=== PATIENT | male | born 1950 | race Caucasian/White ===

== ENCOUNTER 2018-06-14 02:04 | Emergency (ER) | payer OTHER ==
[~2018-06-14] VITALS: Ht 182.9 cm; Wt 83.9 kg
[2018-06-14 03:21] VITALS: BP 154/84
[2018-06-14] MEDS ORDERED: LIDO:MAALOX 1:1 20 ML SINGLE DOSE. SWSW ONE (03:30)
--- NOTE | 2018-06-14 03:40 | PHYS DOC ---
Past Medical History Past Medical History: No Pertinent History Past Surgical History: No Surgical History Alcohol Use: Occasionally Drug Use: None Adult General Chief Complaint Chief Complaint: GI PROBLEM HPI HPI Patient is a 67-year-old male who presents with complaint of feeling like he got something stuck in his throat after eating some hors d'oeuvres at a alliance party on Thursday night. Patient states that he has been able to swallow food and fluids but every time he swallows, it feels like something is stuck. He states that he started to chew on the order of in question and before he could spit it out, he had already swallowed part of it. He wonders if maybe there was a toothpick or something else that may have been in the hors d'oeuvre that has gotten stuck in his throat. He denies any chest pain or shortness of breath. Review of Systems Review of Systems Constitutional: Denies fever or chills [] Eyes: Denies change in visual acuity, redness, or eye pain [] HENT: Positive globus sensation[] Respiratory: Denies cough or shortness of breath [] Cardiovascular: No additional information not addressed in HPI [] GI: Denies abdominal pain, nausea, vomiting or diarrhea [] All other systems were reviewed and found to be within normal limits, except as documented in this note. Current Medications Current Medications Current Medications Medications (Trade) Dose Ordered Sig/Sebas Start Time Stop Time Status Last Admin Dose Admin Multi-Ingredient Mouthwash/Gargle (Gi Cocktail) 20 ml 1X ONCE 06/14/18 03:30 06/14/18 03:36 DC 06/14/18 03:34 20 ML Allergies Allergies Allergies Coded Allergies Type Severity Reaction Last Updated Verified No Known Drug Allergies 06/14/18 No Physical Exam Physical Exam Constitutional: Well developed, well nourished, no acute distress, non-toxic appearance. [] HENT: Normocephalic, atraumatic, bilateral external ears normal, oropharynx moist, no oral exudates, nose normal. [] Eyes: PERRLA, EOMI, conjunctiva normal, no discharge. [] Neck: Normal range of motion, no tenderness, supple, no stridor. [] Cardiovascular:Heart rate regular rhythm [] Lungs & Thorax: Bilateral breath sounds clear to auscultation [] Abdomen: Bowel sounds normal, soft. [] Skin: Warm, dry, no erythema, no rash. [] Extremities: No tenderness, no cyanosis, no clubbing, ROM intact, no edema. [] Neurologic: Alert and oriented X 3, normal motor function, normal sensory function, no focal deficits noted. [] Current Patient Data Vital Signs Vital Signs Date Time Temp Pulse Resp B/P (MAP) Pulse Ox O2 Delivery O2 Flow Rate FiO2 06/14/18 03:21 97.5 62 20 154/84 (107) 100 Room Air 97.5 EKG EKG [] Radiology/Procedures Radiology/Procedures [] Impressions: CT of chest and CT of soft tissue neck demonstrate no esophageal foreign bodies. Course & Med Decision Making Course & Med Decision Making Pertinent Labs and Imaging studies reviewed. (See chart for details) [] Dragon Disclaimer Dragon Disclaimer This electronic medical record was generated, in whole or in part, using a voice recognition dictation system. Departure Departure Impression: Primary Impression: Dysphagia Additional Impression: Globus pharyngeus Disposition: HOME, SELF-CARE Condition: STABLE Referrals: LILY WOODARD (PCP) Patient Instructions: Dysphagia, Globus Syndrome Problem Qualifiers Primary Impression: Dysphagia Dysphagia type: unspecified Qualified Codes: R13.10 - Dysphagia, unspecified ABBY KIMBLE Jr. DO Jun 14, 2018 03:40
--- NOTE | 2018-06-14 04:33 | RAD ---
CT neck without contrast History: Sore throat stiff neck difficulty swallowing Axial helical images of the neck were obtained without IV contrast. Axial coronal and sagittal reconstruction was performed for a CT soft tissues neck with contrast. Findings: The fat soft tissue planes of the neck are preserved. There is no mass or lymphadenopathy. There is no prevertebral soft tissue swelling. The thyroid appears normal. There is marked degenerative changes with multilevel central and neuroforaminal stenosis. Impression: No acute findings. End impression CT of the chest without contrast: Clinical History: Pain. Axial helical images of the chest were obtained without contrast. The lungs and pleural margins are clear. There is no mediastinal or hilar lymphadenopathy. The ascending thoracic aorta is mildly dilated to 3.5 cm. There is mild coronary artery calcifications. Impression: 1. Mildly dilated ascending thoracic aorta. 2. No acute findings. PQRS Compliance Statement: One or more of the following individualized dose reduction techniques were utilized for this examination: 1. Automated exposure control 2. Adjustment of the mA and/or kV according to patient size 3. Use of iterative reconstruction technique Electronically signed by: Carlos Olson III, MD (06/14/2018 4:31 AM) [facility]
== END 2018-06-14 05:19 | disposition home or self-care (01) ==
LOC: ER 02:04
DX: R13.10 Dysphagia, unspecified (principal); F45.8 Other somatoform disorders
CPT/HCPCS: 70490; 71250; 99284-25

== ENCOUNTER 2019-01-03 19:24 | Inpatient (IN) | payer OTHER ==
[~2019-01-03] VITALS: Ht 180.3 cm; Wt 85.9 kg
[2019-01-03] MEDS ORDERED: IV NORMAL SALINE 1000ML BAG 1,000 ML IV SCH (19:47)
[2019-01-03] MEDS ORDERED: dilTIAZem IV PUSH 25 MG/5 ML VIAL IVP ONE (20:00)
--- NOTE | 2019-01-03 20:03 | PHYS DOC ---
Past Medical History Past Medical History: No Pertinent History Past Surgical History: No Surgical History Additional Information: non smoker Alcohol Use: Occasionally Drug Use: None Adult General Chief Complaint Chief Complaint: Palpitations HPI HPI Patient is a 68 year old male who presents with shortness of breath, fatigue, jaw pain, dizziness. Symptoms have been ongoing since this morning. Is in a-fib on the monitor in the room with a rate of 150. Has had a hx of a-fib. Last event was 3 years ago. Has had 4 total events. The first in 2004. Reports no pain and no interventions prior to arrival. The patient does not take any daily medications with the exception of pepcid and is not anticoagulated. Review of Systems Review of Systems Constitutional: Denies fever or chills, reports fatigue Eyes: Denies change in visual acuity, redness, or eye pain [] HENT: Denies nasal congestion or sore throat [] Respiratory: Denies cough but reports shortness of breath [] Cardiovascular: Reports Jaw pain and dizziness. GI: Denies abdominal pain, nausea, vomiting, bloody stools or diarrhea [] : Denies dysuria or hematuria [] Musculoskeletal: Denies back pain or joint pain [] Integument: Denies rash or skin lesions [] Neurologic: Denies headache, focal weakness or sensory changes [] Endocrine: Denies polyuria or polydipsia [] Complete systems were reviewed and found to be within normal limits, except as documented in this note. Current Medications Current Medications Current Medications Medications (Trade) Dose Ordered Sig/Sebas Start Time Stop Time Status Last Admin Dose Admin Diltiazem HCl (Cardizem Iv Push) 20 mg 1X ONCE 01/03/19 20:00 01/03/19 20:01 DC 01/03/19 20:08 20 MG Diltiazem HCl 125 mg/Dextrose 125 ml @ 5 mls/hr STAT STAT 01/03/19 20:45 01/04/19 21:44 Enoxaparin Sodium (Lovenox 80mg Syringe) 80 mg 1X ONCE 01/03/19 20:00 01/03/19 20:01 DC 01/03/19 20:04 80 MG Sodium Chloride 1,000 ml @ 1,000 mls/hr Q1H 01/03/19 19:47 01/03/19 20:46 DC 01/03/19 20:03 1,000 MLS/HR Allergies Allergies Allergies Coded Allergies Type Severity Reaction Last Updated Verified No Known Drug Allergies 06/14/18 No Physical Exam Physical Exam Constitutional: Well developed, well nourished, no acute distress, non-toxic appearance. [] HENT: Normocephalic, atraumatic, bilateral external ears normal, oropharynx moist, no oral exudates, nose normal. [] Eyes: PERRLA, EOMI, conjunctiva normal, no discharge. [] Neck: Normal range of motion, no tenderness, supple, no stridor. [] Cardiovascular:Heart rate irregular rhythm, no murmur [] Lungs & Thorax: Bilateral breath sounds clear to auscultation [] Abdomen: Bowel sounds normal, soft, no tenderness, no masses, no pulsatile masses. [] Skin: Warm, dry, no erythema, no rash. [] Back: No tenderness, no CVA tenderness. [] Extremities: No tenderness, no cyanosis, no clubbing, ROM intact, no edema. [] Neurologic: Alert and oriented X 3, normal motor function, normal sensory function, no focal deficits noted. [] Psychologic: Affect normal, judgement normal, mood normal. [] Current Patient Data Vital Signs Vital Signs Date Time Temp Pulse Resp B/P (MAP) Pulse Ox O2 Delivery O2 Flow Rate FiO2 01/03/19 20:08 124 126/80 01/03/19 19:46 97.8 99 Room Air 97.8 Lab Values Laboratory Tests Test 01/03/19 19:35 White Blood Count 5.4 x10^3/uL (4.0-11.0) Red Blood Count 5.03 x10^6/uL (4.30-5.70) Hemoglobin 15.3 g/dL (13.0-17.5) Hematocrit 45.4 % (39.0-53.0) Mean Corpuscular Volume 90 fL (79-100) Mean Corpuscular Hemoglobin 31 pg (25-35) Mean Corpuscular Hemoglobin Concent 34 g/dL (31-37) Red Cell Distribution Width 13.1 % (11.5-14.5) Platelet Count 155 x10^3/uL (140-400) Neutrophils (%) (Auto) 56 % (31-73) Lymphocytes (%) (Auto) 29 % (24-48) Monocytes (%) (Auto) 7 % (0-9) Eosinophils (%) (Auto) 8 % (0-3) H Basophils (%) (Auto) 1 % (0-3) Neutrophils # (Auto) 3.0 x10^3uL (1.8-7.7) Lymphocytes # (Auto) 1.5 x10^3/uL (1.0-4.8) Monocytes # (Auto) 0.4 x10^3/uL (0.0-1.1) Eosinophils # (Auto) 0.4 x10^3/uL (0.0-0.7) Basophils # (Auto) 0.0 x10^3/uL (0.0-0.2) Prothrombin Time 11.9 SEC (11.7-14.0) Prothrombin Time INR 0.9 (0.8-1.1) Sodium Level 142 mmol/L (136-145) Potassium Level 3.5 mmol/L (3.5-5.1) Chloride Level 102 mmol/L (98-107) Carbon Dioxide Level 31 mmol/L (21-32) Anion Gap 9 (6-14) Blood Urea Nitrogen 13 mg/dL (8-26) Creatinine 1.1 mg/dL (0.7-1.3) Estimated GFR (Cockcroft-Gault) 66.4 BUN/Creatinine Ratio 12 (6-20) Glucose Level 129 mg/dL (70-99) H Calcium Level 9.0 mg/dL (8.5-10.1) Total Bilirubin 0.3 mg/dL (0.2-1.0) Aspartate Amino Transferase (AST) 34 U/L (15-37) Alanine Aminotransferase (ALT) 29 U/L (16-63) Alkaline Phosphatase 75 U/L (46-116) Troponin I Quantitative < 0.017 ng/mL (0.000-0.055) Total Protein 6.8 g/dL (6.4-8.2) Albumin 3.9 g/dL (3.4-5.0) Albumin/Globulin Ratio 1.3 (1.0-1.7) Laboratory Tests 01/03/19 19:35 Laboratory Tests 01/03/19 19:35 EKG EKG Interpreted by Dr. Enmanuel Rios with rate of 120. No STEMI.[] Interpreted by Dr. Singer A-fib with rate of 107. No STEMI. Radiology/Procedures Radiology/Procedures PRE-BARFIELD READING OF CHEST X-RAY NO ACUTE ABNORMALITIES[] Course & Med Decision Making Course & Med Decision Making Pertinent Labs and Imaging studies reviewed. (See chart for details) Will order labs, chest x-ray, Lovenox, Cardizem IV push, and EKG. Patient is agreeable. After Cardizem IV push rate is better controlled down to 90-110. Will order a Cardizem drip to get in better control. Will call hospitalist for admission. Talked to Dr. Grijalva who will admit to [facility]. Dragon Disclaimer Dragon Disclaimer This electronic medical record was generated, in whole or in part, using a voice recognition dictation system. Departure Departure Impression: Primary Impression: Atrial fibrillation Disposition: ADMITTED INPATIENT Admitting Physician: Other Referrals: LILY WOODARD (PCP) Problem Qualifiers Primary Impression: Atrial fibrillation Atrial fibrillation type: persistent Qualified Codes: I48.1 - Persistent atrial fibrillation LIZET ARCHER APRN January 03, 2019 20:03
[2019-01-03 20:12] LABS: BASO % 1 % (0-3); EOS # 0.4 x10^3/uL (0.0-0.7); EOS % 8 % (0-3); HEMATOCRIT 45.4 % (39.0-53.0); HEMOGLOBIN 15.3 g/dL (13.0-17.5); LYMPH # 1.5 x10^3/uL (1.0-4.8); LYMPH % 29 % (24-48); MEAN CORPUSCULAR HEMOGLOBIN 31 pg (25-35); MEAN CORPUSCULAR HGB CONC 34 g/dL (31-37); MEAN CORPUSCULAR VOLUME 90 fL (79-100); MONO # 0.4 x10^3/uL (0.0-1.1); MONO % 7 % (0-9); NEUT % 56 % (31-73); PLATELET COUNT 155 x10^3/uL (140-400); RED BLOOD COUNT 5.03 x10^6/uL (4.30-5.70); RED CELL DISTRIBUTION WIDTH 13.1 % (11.5-14.5); WHITE BLOOD COUNT 5.4 x10^3/uL (4.0-11.0)
[2019-01-03 20:23] LABS: PROTHROMBIN TIME PATIENT 11.9 SEC (11.7-14.0)
[2019-01-03 20:25] LABS: CREATININE 1.1 mg/dL (0.7-1.3); GFR 66.4; POTASSIUM 3.5 mmol/L (3.5-5.1)
[2019-01-03 20:29] LABS: ALBUMIN 3.9 g/dL (3.4-5.0); ALBUMIN/GLOBULIN RATIO 1.3 (1.0-1.7); TOTAL BILIRUBIN 0.3 mg/dL (0.2-1.0); TOTAL PROTEIN 6.8 g/dL (6.4-8.2)
[2019-01-03] MEDS ORDERED: dilTIAZem INJ 125 MG in IV DEXTROSE 5% 100ML 100 ML IV STA (20:45)
[2019-01-03] MEDS ORDERED: ONDANSETRON PF 4 MG/2 ML VIAL. IV PRN (21:00)
[2019-01-03] MEDS ORDERED: fentaNYL PF VIAL 100 MCG/2 ML VIAL IV PRN (21:00)
--- NOTE | 2019-01-03 21:30 | NUR ---
Admit from ER w/ Afib, dizziness, and palpitations. Drove self to ER. Diagnosed w/ Afib in 2004, one cardioversion done, not on anti-coagulant. Does not see a nut sheller. Chronic hx of dysphagia also, cause unknown. 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 In NAD, pulse irregular in the 50s.
[2019-01-03 21:40] VITALS: BP 112/77
[2019-01-03 23:05] VITALS: BP 100/64
[2019-01-04 03:05] VITALS: BP 102/64
[2019-01-04 07:00] VITALS: BP 108/69
--- NOTE | 2019-01-04 09:23 | PDOC1 ---
History and Physical Date of Admission Date of Admission DATE: 01/04/19 TIME: 09:23 Identification/Chief Complaint Chief Complaint seen in ER, 68 year old male who presents with shortness of breath, fatigue, jaw pain, dizziness. WAS in a-fib on the monitor in the room with a rate of 150. Has had a hx of a-fib. Last event was 3 years ago. Has had 4 total events. The first in 2004. Reports no pain and no interventions prior to arrival. reports normal cardiac cath [address] MARISA CHAVEZ [facility] Past Medical History Past Medical History Past Medical History Past Medical History Past Medical History: No Pertinent History Past Surgical History: No Surgical History Additional Information: non smoker Alcohol Use: Occasionally Drug Use: None FAMILY HX CAD Cardiovascular: AFIB Rheumatologic: No pertinent hx Family History Family History: Coronary Artery Disease, High Cholestrol, Hypertension Family History: Parent Social History Smoke: No ALCOHOL: social Drugs: None, Other (RETIRED [employer]) Current Problem List Problem List Problems Medical Problems: (1) Atrial fibrillation Status: Acute Current Medications Current Medications Current Medications Sodium Chloride 1,000 ml @ 1,000 mls/hr Q1H IV Last administered on 01/03/19at 20:03; Start 01/03/19 at 19:47; Stop 01/03/19 at 20:46; Status DC Enoxaparin Sodium (Lovenox 80mg Syringe) 80 mg 1X ONCE SQ Last administered on 01/03/19at 20:04; Start 01/03/19 at 20:00; Stop 01/03/19 at 20:01; Status DC Diltiazem HCl (Cardizem Iv Push) 20 mg 1X ONCE IVP Last administered on 01/03/19at 20:08; Start 01/03/19 at 20:00; Stop 01/03/19 at 20:01; Status DC Diltiazem HCl 125 mg/Dextrose 125 ml @ 5 mls/hr STAT STAT IV Last administered on 01/03/19at 21:09; Start 01/03/19 at 20:45; Stop 01/04/19 at 21:44 Ondansetron HCl (Zofran) 4 mg PRN Q8HRS PRN IV NAUSEA/VOMITING; Start 01/03/19 at 21:00; Stop 01/04/19 at 20:59 Fentanyl Citrate (Fentanyl 2ml Vial) 50 mcg PRN Q1HR PRN IV PAIN; Start 01/03/19 at 21:00; Stop 01/04/19 at 20:59 Allergies Allergies: Coded Allergies: No Known Drug Allergies (Unverified , 06/14/18) ROS Review of System Review of Systems Review of Systems Constitutional: Denies fever or chills, reports fatigue Eyes: Denies change in visual acuity, redness, or eye pain [] HENT: Denies nasal congestion or sore throat [] Respiratory: Denies cough but reports shortness of breath in er [] Cardiovascular: Reports Jaw pain and dizziness.resolved GI: Denies abdominal pain, nausea, vomiting, bloody stools or diarrhea [] : Denies dysuria or hematuria [] Musculoskeletal: Denies back pain or joint pain [] Integument: Denies rash or skin lesions [] Neurologic: Denies headache, focal weakness or sensory changes [] Endocrine: Denies polyuria or polydipsia [] 14 pt systems were reviewed and found to be within normal limits, except as documented General: No: Chills, Night Sweats, Fatigue, Malaise, Appetite, Other Hematological and Lymphatic: No: Bleeding Problems, Blood Clots, Blood Transfusions, Brusing, Night Sweats, Pallor, Swollen Lymph Nodes, Other Respiratory: No: Cough, Hemoptysis, Orthopnea, Pleuritic Pain, Shortness of breath, SOB with excertion, Sputum Changes, Stridor, Tachypnea, Wheezing, Other Cardiovascular: yes Palpitations Gastrointestinal: No Nausea, No Vomiting, No Abdominal Pain, No Diarrhea, No Constipation, No Melena, No Hematochezia, No Other Neurological: No Behavorial Changes, No Bowel/Bladder ControlChng, No Confusion, No Dizziness, No Gait Disturbance, No Headaches, No Impaired Coord/balance, No Memory Loss, No Numbness/Tingling, No Seizures, No Speech Problems, No Tremors, No Visual Changes, No Weakness, No Other Skin: No Dry Skin, No Eczema, No Hair Changes, No Lumps, No Mole Changes, No Mottling, No Nail Changes, No Pruritus, No Rash, No Skin Lesion Changes, No Other, No Acne Physical Exam Physical Exam Physical Exam Physical Exam Constitutional: Well developed, well nourished, no acute distress, non-toxic appearance. [] HENT: Normocephalic, atraumatic, bilateral external ears normal, oropharynx moist, no oral exudates, nose normal. [] Eyes: PERRLA, EOMI, conjunctiva normal, no discharge. [] Neck: Normal range of motion, no tenderness, supple, no stridor. [] Cardiovascular:Heart rate irregular rhythm, no murmur [] Lungs & Thorax: Bilateral breath sounds clear to auscultation [] Abdomen: Bowel sounds normal, soft, no tenderness, no masses, no pulsatile masses. [] Skin: Warm, dry, no erythema, no rash. [] Back: No tenderness, no CVA tenderness. [] Extremities: No tenderness, no cyanosis, no clubbing, ROM intact, no edema. [] Neurologic: Alert and oriented X 3, normal motor function, normal sensory function, no focal deficits noted. [] Psychologic: Affect normal, judgement normal, mood normal. [] General: Alert, Oriented X3, Cooperative, No acute distress HEENT: Atraumatic, EOMI, Mucous membr. moist/pink Lungs: Clear to auscultation Heart: RRR Breasts: Not examined Abdomen: Normal bowel sounds, Soft Rectal Exam: not examined Extremities: No cyanosis Skin: No significant lesion Neuro: Normal speech, Cranial nerves 3-12 NL Psych/Mental Status: Mental status NL Vitals Vitals Vital Signs Date Time Temp Pulse Resp B/P (MAP) Pulse Ox O2 Delivery O2 Flow Rate FiO2 01/04/19 07:15 Room Air 01/04/19 07:00 97.9 50 18 108/69 (82) 98 97.9 Labs Labs Laboratory Tests Test 01/03/19 19:35 White Blood Count 5.4 x10^3/uL (4.0-11.0) Red Blood Count 5.03 x10^6/uL (4.30-5.70) Hemoglobin 15.3 g/dL (13.0-17.5) Hematocrit 45.4 % (39.0-53.0) Mean Corpuscular Volume 90 fL (79-100) Mean Corpuscular Hemoglobin 31 pg (25-35) Mean Corpuscular Hemoglobin Concent 34 g/dL (31-37) Red Cell Distribution Width 13.1 % (11.5-14.5) Platelet Count 155 x10^3/uL (140-400) Neutrophils (%) (Auto) 56 % (31-73) Lymphocytes (%) (Auto) 29 % (24-48) Monocytes (%) (Auto) 7 % (0-9) Eosinophils (%) (Auto) 8 % (0-3) Basophils (%) (Auto) 1 % (0-3) Neutrophils # (Auto) 3.0 x10^3uL (1.8-7.7) Lymphocytes # (Auto) 1.5 x10^3/uL (1.0-4.8) Monocytes # (Auto) 0.4 x10^3/uL (0.0-1.1) Eosinophils # (Auto) 0.4 x10^3/uL (0.0-0.7) Basophils # (Auto) 0.0 x10^3/uL (0.0-0.2) Prothrombin Time 11.9 SEC (11.7-14.0) Prothromb Time International Ratio 0.9 (0.8-1.1) Sodium Level 142 mmol/L (136-145) Potassium Level 3.5 mmol/L (3.5-5.1) Chloride Level 102 mmol/L (98-107) Carbon Dioxide Level 31 mmol/L (21-32) Anion Gap 9 (6-14) Blood Urea Nitrogen 13 mg/dL (8-26) Creatinine 1.1 mg/dL (0.7-1.3) Estimated GFR (Cockcroft-Gault) 66.4 BUN/Creatinine Ratio 12 (6-20) Glucose Level 129 mg/dL (70-99) Calcium Level 9.0 mg/dL (8.5-10.1) Total Bilirubin 0.3 mg/dL (0.2-1.0) Aspartate Amino Transf (AST/SGOT) 34 U/L (15-37) Alanine Aminotransferase (ALT/SGPT) 29 U/L (16-63) Alkaline Phosphatase 75 U/L (46-116) Troponin I Quantitative < 0.017 ng/mL (0.000-0.055) Total Protein 6.8 g/dL (6.4-8.2) Albumin 3.9 g/dL (3.4-5.0) Albumin/Globulin Ratio 1.3 (1.0-1.7) Laboratory Tests Test 01/03/19 19:35 White Blood Count 5.4 x10^3/uL (4.0-11.0) Red Blood Count 5.03 x10^6/uL (4.30-5.70) Hemoglobin 15.3 g/dL (13.0-17.5) Hematocrit 45.4 % (39.0-53.0) Mean Corpuscular Volume 90 fL (79-100) Mean Corpuscular Hemoglobin 31 pg (25-35) Mean Corpuscular Hemoglobin Concent 34 g/dL (31-37) Red Cell Distribution Width 13.1 % (11.5-14.5) Platelet Count 155 x10^3/uL (140-400) Neutrophils (%) (Auto) 56 % (31-73) Lymphocytes (%) (Auto) 29 % (24-48) Monocytes (%) (Auto) 7 % (0-9) Eosinophils (%) (Auto) 8 % (0-3) Basophils (%) (Auto) 1 % (0-3) Neutrophils # (Auto) 3.0 x10^3uL (1.8-7.7) Lymphocytes # (Auto) 1.5 x10^3/uL (1.0-4.8) Monocytes # (Auto) 0.4 x10^3/uL (0.0-1.1) Eosinophils # (Auto) 0.4 x10^3/uL (0.0-0.7) Basophils # (Auto) 0.0 x10^3/uL (0.0-0.2) Prothrombin Time 11.9 SEC (11.7-14.0) Prothromb Time International Ratio 0.9 (0.8-1.1) Sodium Level 142 mmol/L (136-145) Potassium Level 3.5 mmol/L (3.5-5.1) Chloride Level 102 mmol/L (98-107) Carbon Dioxide Level 31 mmol/L (21-32) Anion Gap 9 (6-14) Blood Urea Nitrogen 13 mg/dL (8-26) Creatinine 1.1 mg/dL (0.7-1.3) Estimated GFR (Cockcroft-Gault) 66.4 BUN/Creatinine Ratio 12 (6-20) Glucose Level 129 mg/dL (70-99) Calcium Level 9.0 mg/dL (8.5-10.1) Total Bilirubin 0.3 mg/dL (0.2-1.0) Aspartate Amino Transf (AST/SGOT) 34 U/L (15-37) Alanine Aminotransferase (ALT/SGPT) 29 U/L (16-63) Alkaline Phosphatase 75 U/L (46-116) Troponin I Quantitative < 0.017 ng/mL (0.000-0.055) Total Protein 6.8 g/dL (6.4-8.2) Albumin 3.9 g/dL (3.4-5.0) Albumin/Globulin Ratio 1.3 (1.0-1.7) Images Images Single view chest dated 01/03/2019. Comparison made to 06/14/2018 and 07/28/2005. CLINICAL INDICATION: Palpitations. FINDINGS: Single upright view of the chest shows stable heart and mediastinal contours. Lungs are somewhat hyperinflated but otherwise clear. No consolidation or pleural effusion. No pneumothorax. IMPRESSION: 1. No acute radiographic abnormality. 2. Hyperinflation, suggesting COPD. Electronically signed by: Lizet De Anda MD (01/03/2019 8:20 PM) [facility] DICTATED and SIGNED BY: LIZET DE ANDA MD DATE: 01/03/192019 VTE Prophylaxis Ordered VTE Prophylaxis Devices: Yes VTE Pharmacological Prophylaxi: Yes Assessment/Plan Assessment/Plan IMPRESSION AFIB RVR Hyperinflation, suggesting COPD.///ON cxr, nonsmoker HX NO CATH 2015 [facility] PLAN ADMIT CVC CARDIZEM DRIP, TITRATE D/C START TOPROL cardiology consult echo PENDING dvt prophylaxis CONSIDER STRESS TESTING HEENA VARMA MD January 04, 2019 09:23
[2019-01-04 09:39] LABS: CHOLESTEROL/HDL RATIO 2.9
[2019-01-04] MEDS ORDERED: ASPIRIN ENTERIC COATED 325 MG TABLET.DR. PO ONE (09:45)
--- NOTE | 2019-01-04 09:48 | PDOC2 ---
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 Reports that he has been feeling more tired in the last several days. 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 Yesterday he was standing in front of the sink and felt palpitations and felt weak. No nausea, or SOA. He went to ED and he was noted with AFIB RVR. He had this before first noted in 2004. He saw a warehouse supervisor 3rd shift about 2 yrs ago and was told that he does not need anymore medications but has not had any heart monitor as an outpt. He had stress test 3 yrs ago and LHC 2 yrs ago which were both unremarkable based on his description. No recent long distance travel. No prior CVA/TIA. No prior VTE, CAD and does not take any medications except for PRN antihistamine for allergies. No recent falls or injury. No syncope. PAST MEDICAL HISTORY Cardiovascular: AFIB Pulmonary: No pertinent hx CENTRAL NERVOUS SYSTEM: Other (No pertinent history) GI: Peptic Ulcer disease Heme/Onc: No pertinent hx Hepatobiliary: No pertinent hx Psych: No pertinent hx Musculoskeletal: Osteoarthritis Rheumatologic: No pertinent hx Infectious disease: No pertinent hx ENT: Allergic Rhinitis Renal/: Prostate Ca. Endocrine: No pertinent hx Dermatology: No pertinent hx PAST SURGICAL HISTORY Past Surgical History: Other (protate removal) FAMILY HISTORY Family History noncontributory to CV SOCIAL HISTORY Smoke: No ALCOHOL: none Drugs: None Lives: Alone CURRENT MEDICATIONS CURRENT MEDICATIONS Current Medications Medications (Trade) Dose Ordered Sig/Sebas Route PRN Reason Start Time Stop Time Status Last Admin Dose Admin Sodium Chloride 1,000 ml @ 1,000 mls/hr Q1H IV 01/03/19 19:47 01/03/19 20:46 DC 01/03/19 20:03 Enoxaparin Sodium (Lovenox 80mg Syringe) 80 mg 1X ONCE SQ 01/03/19 20:00 01/03/19 20:01 DC 01/03/19 20:04 Diltiazem HCl (Cardizem Iv Push) 20 mg 1X ONCE IVP 01/03/19 20:00 01/03/19 20:01 DC 01/03/19 20:08 Diltiazem HCl 125 mg/Dextrose 125 ml @ 5 mls/hr STAT STAT IV 01/03/19 20:45 01/04/19 21:44 01/03/19 21:09 ALLERGIES ALLERGIES: Coded Allergies: No Known Drug Allergies (Unverified , 06/14/18) ROS Review of System 14 point ROS evaluated with pertinent positives noted per HPI PHYSICAL EXAM General: Alert, Oriented X3, Cooperative, No acute distress HEENT: Atraumatic, Mucous membr. moist/pink Lungs: Clear to auscultation, Normal air movement Heart: Regular rate (SB), Normal S1, Normal S2, No murmurs Abdomen: Soft, No tenderness Extremities: No cyanosis, No edema Skin: No breakdown, No significant lesion Neuro: Normal speech, Sensation intact Psych/Mental Status: Mental status NL, Mood NL MUSCULOSKELETAL: Osteoarthritic changes both hands VITALS VITALS Vital Signs Date Time Temp Pulse Resp B/P (MAP) Pulse Ox O2 Delivery O2 Flow Rate FiO2 01/04/19 07:15 Room Air 01/04/19 07:00 97.9 50 18 108/69 (82) 98 97.9 LABS Lab: Laboratory Tests Test 01/03/19 19:35 White Blood Count 5.4 x10^3/uL (4.0-11.0) Red Blood Count 5.03 x10^6/uL (4.30-5.70) Hemoglobin 15.3 g/dL (13.0-17.5) Hematocrit 45.4 % (39.0-53.0) Mean Corpuscular Volume 90 fL (79-100) Mean Corpuscular Hemoglobin 31 pg (25-35) Mean Corpuscular Hemoglobin Concent 34 g/dL (31-37) Red Cell Distribution Width 13.1 % (11.5-14.5) Platelet Count 155 x10^3/uL (140-400) Neutrophils (%) (Auto) 56 % (31-73) Lymphocytes (%) (Auto) 29 % (24-48) Monocytes (%) (Auto) 7 % (0-9) Eosinophils (%) (Auto) 8 % (0-3) Basophils (%) (Auto) 1 % (0-3) Neutrophils # (Auto) 3.0 x10^3uL (1.8-7.7) Lymphocytes # (Auto) 1.5 x10^3/uL (1.0-4.8) Monocytes # (Auto) 0.4 x10^3/uL (0.0-1.1) Eosinophils # (Auto) 0.4 x10^3/uL (0.0-0.7) Basophils # (Auto) 0.0 x10^3/uL (0.0-0.2) Prothrombin Time 11.9 SEC (11.7-14.0) Prothromb Time International Ratio 0.9 (0.8-1.1) Sodium Level 142 mmol/L (136-145) Potassium Level 3.5 mmol/L (3.5-5.1) Chloride Level 102 mmol/L (98-107) Carbon Dioxide Level 31 mmol/L (21-32) Anion Gap 9 (6-14) Blood Urea Nitrogen 13 mg/dL (8-26) Creatinine 1.1 mg/dL (0.7-1.3) Estimated GFR (Cockcroft-Gault) 66.4 BUN/Creatinine Ratio 12 (6-20) Glucose Level 129 mg/dL (70-99) Calcium Level 9.0 mg/dL (8.5-10.1) Total Bilirubin 0.3 mg/dL (0.2-1.0) Aspartate Amino Transf (AST/SGOT) 34 U/L (15-37) Alanine Aminotransferase (ALT/SGPT) 29 U/L (16-63) Alkaline Phosphatase 75 U/L (46-116) Troponin I Quantitative < 0.017 ng/mL (0.000-0.055) Total Protein 6.8 g/dL (6.4-8.2) Albumin 3.9 g/dL (3.4-5.0) Albumin/Globulin Ratio 1.3 (1.0-1.7) ASSESSMENT/PLAN ASSESSMENT/PLAN AFIB RVR/Palpitations: Converted to SR/SB lowest mid40s. Cardizem 5 mg/hr drip taken off due to latter. Hx of PAFIB: no meds at home reported taken off 2 yrs ago Recommendations 1. MCOT as an outpt. 2. ECASA 325 daily for stroke prevention. [id number] 1. Place on 12.5 mg top rol XL, BP marginal, and will note response 3. Flecainide is a consideration pending TTE and AFIB burden via MCOT. 4. Discussed avoidance of phenylephrine for allergy and excessive caffeine use 5. Check TSH and lipids. ALINA SARAVIA MD 01/04/192: CARDIAC CONSULT ASSESSMENT/PLAN ASSESSMENT/PLAN Patient seen and examined. Agree with CONSTRUCTION CODE ADMINISTRATOR's assessment and plan. Patient presently back in SR and feeling better 2D echo showed normal LV function Agree with ASA for stroke prophylaxis due to low ChadsVasc score Plan outpatient event monitor to assess arrhythmia burden Thank you for your consultation HAMMAD SOLANO APRN January 04, 2019 09:48 ALINA SARAVIA MD January 04, 2019 21:02
--- NOTE | 2019-01-04 09:48 | EKG ---
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
--- NOTE | 2019-01-04 09:49 | RAD ---
Single view chest dated 01/03/2019. Comparison made to 06/14/2018 and 07/28/2005. CLINICAL INDICATION: Palpitations. FINDINGS: Single upright view of the chest shows stable heart and mediastinal contours. Lungs are somewhat hyperinflated but otherwise clear. No consolidation or pleural effusion. No pneumothorax. IMPRESSION: 1. No acute radiographic abnormality. 2. Hyperinflation, suggesting COPD. Electronically signed by: Romario De Anda MD (01/03/2019 8:20 PM) [facility]
[2019-01-04] MEDS ORDERED: METOPROLOL SUCC 24HR ER 25 MG TAB.ER.24H. PO SCH (10:00)
--- NOTE | 2019-01-04 10:40 | EKG ---
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
[2019-01-04 10:54] VITALS: BP 104/66
--- NOTE | 2019-01-04 12:09 | NUR ---
SS following for discharge planning. SS reviewed pt chart. Pt is from home with spouse and is currently on room air. No discharge needs noted at this time. SS will continue to follow for discharge planning.
--- NOTE | 2019-01-04 15:29 | CARD ---
MR#: [id number] Date of Study: 01/04/2019 Ordering Physician: HAMMAD SOLANO, Referring Physician: MICA RAMIREZ Tech: Sasha Hardy RDCS APPROVED REPORT EXAM: Two-dimensional and M-mode echocardiogram with Doppler and color Doppler. Other Information Quality : Good INDICATION Atrial Fibrillation 2D DIMENSIONS RVDd2.9 (2.9-3.5cm)Left Atrium(2D)3.9 (1.6-4.0cm) IVSd0.7 (0.7-1.1cm)Aortic Root(2D)3.5 (2.0-3.7cm) LVDd5.4 (3.9-5.9cm)LVOT Diameter2.2 (1.8-2.4cm) PWd0.7 (0.7-1.1cm)LVDs3.5 (2.5-4.0cm) FS (%) 34.3 %SV88.6 ml LVEF(%)62.8 (>50%) Aortic Valve AoV Peak Benoit.106.9cm/sAoV VTI19.2cm AO Peak GR.4.6mmHgLVOT Peak Benoit.96.4cm/s AO Mean GR.2mmHgAVA (VMAX)3.33cm2 QASIM (VTI)3.60cm2 Mitral Valve MV E Gbsyiwdf41.5cm/sMV DECEL RBJN268co MV A Ycdwjaqy29.3cm/sE/A Ratio0.9 Tricuspid Valve TR P. Wupjjojq880xw/sRAP VVGUIWYP8oaNm TR Peak Gr.97teSkNOCD53spXa Pulmonary Vein S1 Ebvkdpet45.7cm/sD2 Wqtxeudu81.1cm/s LEFT VENTRICLE The left ventricle is normal size. There is normal left ventricular wall thickness. The left ventricu lar systolic function is normal. The Ejection Fraction is 55-60%. There is normal LV segmental wall m otion. Transmitral Doppler flow pattern is Grade I-abnormal relaxation pattern. RIGHT VENTRICLE The right ventricle is normal size. The right ventricular systolic function is normal. ATRIA The left atrium size is normal. The right atrium size is normal. The interatrial septum is intact wit h no evidence for an atrial septal defect or patent foramen ovale as noted on 2-D or Doppler imaging. AORTIC VALVE The aortic valve is calcified but opens well. Doppler and Color Flow revealed no significant aortic r egurgitation. There is no significant aortic valvular stenosis. MITRAL VALVE The mitral valve is normal in structure and function. A moderate mitral valve prolapse is present. Th ere is no mitral valve stenosis. Doppler and Color-flow revealed mild mitral regurgitation. TRICUSPID VALVE The tricuspid valve is normal in structure and function. Doppler and Color Flow revealed mild tricusp id regurgitation. There is mild pulmonary hypertension. The PA pressure was estimated at 32 mmHg. The re is no tricuspid valve stenosis. PULMONIC VALVE The pulmonic valve is not well visualized. Doppler and Color Flow revealed trace to mild pulmonic dante vular regurgitation. There is no pulmonic valvular stenosis. GREAT VESSELS The aortic root is normal in size. The ascending aorta is normal in size. The IVC is normal in size a nd collapses >50% with inspiration. PERICARDIAL EFFUSION There is no evidence of significant pericardial effusion. Critical Notification Critical Value: No <Conclusion> The left ventricular systolic function is normal. The Ejection Fraction is 55-60%. There is normal LV segmental wall motion. Transmitral Doppler flow pattern is Grade I-abnormal relaxation pattern. Mild mitral regurgitation. Mild tricuspid regurgitation. There is mild pulmonary hypertension. The PA pressure was estimated at 32 mmHg. There is no evidence of significant pericardial effusion. Signed by : Ajith Greenwood, Electronically Approved : 01/04/2019 15:28:31
--- NOTE | 2019-01-04 17:09 | PDOC3 ---
Discharge Summary Date of Admission: January 03, 2019 Date of Discharge: January 04, 2019 Follow-Up: 3-5 days Admitting Diagnosis comment: DISCHARGE DX Assessment/Plan IMPRESSION AFIB RVR Hyperinflation, suggesting COPD.///ON cxr, nonsmoker HX CARDIAC CATH 2015 [facility] PLAN ADMIT CVC CARDIZEM DRIP, TITRATE D/C START TOPROL cardiology consult echo PENDING dvt prophylaxis CONSIDER STRESS TESTING OUT PT D/C PLANNING 33 MIN Chief Complaint seen in ER, 68 year old male who presents with shortness of breath, fatigue, jaw pain, dizziness. WAS in a-fib on the monitor in the room with a rate of 150. Has had a hx of a-fib. Last event was 3 years ago. Has had 4 total events. The first in 2004. Reports no pain and no interventions prior to arrival. 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) Current Problem List Problem List Problems Medical Problems: (1) Atrial fibrillation Status: Acute Current Medications Current Medications Current Medications Sodium Chloride 1,000 ml @ 1,000 mls/hr Q1H IV Last administered on 01/03/19at 20:03; Start 01/03/19 at 19:47; Stop 01/03/19 at 20:46; Status DC Enoxaparin Sodium (Lovenox 80mg Syringe) 80 mg 1X ONCE SQ Last administered on 01/03/19at 20:04; Start 01/03/19 at 20:00; Stop 01/03/19 at 20:01; Status DC Diltiazem HCl (Cardizem Iv Push) 20 mg 1X ONCE IVP Last administered on 01/03/19at 20:08; Start 01/03/19 at 20:00; Stop 01/03/19 at 20:01; Status DC Diltiazem HCl 125 mg/Dextrose 125 ml @ 5 mls/hr STAT STAT IV Last administered on 01/03/19at 21:09; Start 01/03/19 at 20:45; Stop 01/04/19 at 21:44 Ondansetron HCl (Zofran) 4 mg PRN Q8HRS PRN IV NAUSEA/VOMITING; Start 01/03/19 at 21:00; Stop 01/04/19 at 20:59 Fentanyl Citrate (Fentanyl 2ml Vial) 50 mcg PRN Q1HR PRN IV PAIN; Start 12/16 at 21:00; Stop 01/04/19 at 20:59 Allergies Allergies: Coded Allergies: No Known Drug Allergies (Unverified , 06/14/18) ROS Review of System Review of Systems Review of Systems Constitutional: Denies fever or chills, reports fatigue Eyes: Denies change in visual acuity, redness, or eye pain [] HENT: Denies nasal congestion or sore throat [] Respiratory: Denies cough but reports shortness of breath in er [] Cardiovascular: Reports Jaw pain and dizziness.resolved GI: Denies abdominal pain, nausea, vomiting, bloody stools or diarrhea [] : Denies dysuria or hematuria [] Musculoskeletal: Denies back pain or joint pain [] Integument: Denies rash or skin lesions [] Neurologic: Denies headache, focal weakness or sensory changes [] Endocrine: Denies polyuria or polydipsia [] 14 pt systems were reviewed and found to be within normal limits, except as documented General: No: Chills, Night Sweats, Fatigue, Malaise, Appetite, Other Hematological and Lymphatic: No: Bleeding Problems, Blood Clots, Blood Transfusions, Brusing, Night Sweats, Pallor, Swollen Lymph Nodes, Other Respiratory: No: Cough, Hemoptysis, Orthopnea, Pleuritic Pain, Shortness of breath, SOB with excertion, Sputum Changes, Stridor, Tachypnea, Wheezing, Other Cardiovascular: yes Palpitations Gastrointestinal: No Nausea, No Vomiting, No Abdominal Pain, No Diarrhea, No Constipation, No Melena, No Hematochezia, No Other Neurological: No Behavorial Changes, No Bowel/Bladder ControlChng, No Confusion, No Dizziness, No Gait Disturbance, No Headaches, No Impaired Coord/balance, No Memory Loss, No Numbness/Tingling, No Seizures, No Speech Problems, No Tremors, No Visual Changes, No Weakness, No Other Skin: No Dry Skin, No Eczema, No Hair Changes, No Lumps, No Mole Changes, No Mottling, No Nail Changes, No Pruritus, No Rash, No Skin Lesion Changes, No Other, No Acne Physical Exam Physical Exam Physical Exam Physical Exam Constitutional: Well developed, well nourished, no acute distress, non-toxic appearance. [] HENT: Normocephalic, atraumatic, bilateral external ears normal, oropharynx moist, no oral exudates, nose normal. [] Eyes: PERRLA, EOMI, conjunctiva normal, no discharge. [] Neck: Normal range of motion, no tenderness, supple, no stridor. [] Cardiovascular:Heart rate irregular rhythm, no murmur [] Lungs & Thorax: Bilateral breath sounds clear to auscultation [] Abdomen: Bowel sounds normal, soft, no tenderness, no masses, no pulsatile masses. [] Skin: Warm, dry, no erythema, no rash. [] Back: No tenderness, no CVA tenderness. [] Extremities: No tenderness, no cyanosis, no clubbing, ROM intact, no edema. [] Neurologic: Alert and oriented X 3, normal motor function, normal sensory function, no focal deficits noted. [] Psychologic: Affect normal, judgement normal, mood normal. [] General: Alert, Oriented X3, Cooperative, No acute distress HEENT: Atraumatic, EOMI, Mucous membr. moist/pink Lungs: Clear to auscultation Heart: RRR Breasts: Not examined Abdomen: Normal bowel sounds, Soft Rectal Exam: not examined Extremities: No cyanosis Skin: No significant lesion Neuro: Normal speech, Cranial nerves 3-12 NL Psych/Mental Status: Mental status NL FINAL DIAGNOSIS Problems Medical Problems: (1) Atrial fibrillation Status: Acute Brief Hospital Course Mr. Calzada is a 68 old [sex] who presented with [ A FIB RVR] CONDITION AT DISCHARGE: Improved Discharge Medications Current Medications Sodium Chloride 1,000 ml @ 1,000 mls/hr Q1H IV Last administered on 01/03/19at 20:03; Start 01/03/19 at 19:47; Stop 01/03/19 at 20:46; Status DC Enoxaparin Sodium (Lovenox 80mg Syringe) 80 mg 1X ONCE SQ Last administered on 01/03/19at 20:04; Start 01/03/19 at 20:00; Stop 01/03/19 at 20:01; Status DC Diltiazem HCl (Cardizem Iv Push) 20 mg 1X ONCE IVP Last administered on 01/03/19at 20:08; Start 01/03/19 at 20:00; Stop 01/03/19 at 20:01; Status DC Diltiazem HCl 125 mg/Dextrose 125 ml @ 5 mls/hr STAT STAT IV Last administered on 01/03/19at 21:09; Start 01/03/19 at 20:45; Stop 01/04/19 at 21:44 Ondansetron HCl (Zofran) 4 mg PRN Q8HRS PRN IV NAUSEA/VOMITING; Start 01/03/19 at 21:00; Stop 01/04/19 at 20:59 Fentanyl Citrate (Fentanyl 2ml Vial) 50 mcg PRN Q1HR PRN IV PAIN; Start 01/03/19 at 21:00; Stop 01/04/19 at 20:59 Metoprolol Succinate (Toprol Xl) 12.5 mg DAILY PO Last administered on 01/04/19at 09:54; Start 01/04/19 at 10:00 Aspirin (Ecotrin) 325 mg 1X ONCE PO Last administered on 01/04/19at 09:53; Start 01/04/19 at 09:45; Stop 01/04/19 at 09:46; Status DC Aspirin (Ecotrin) 325 mg DAILYWBKFT PO ; Start 01/05/19 at 08:00 Vital Signs Vital Signs Date Time Temp Pulse Resp B/P (MAP) Pulse Ox O2 Delivery O2 Flow Rate FiO2 01/04/19 10:54 97.8 57 18 104/66 (79) 98 Room Air 97.8 Labs Laboratory Tests Test 01/03/19 19:35 01/04/19 08:55 White Blood Count 5.4 x10^3/uL (4.0-11.0) Red Blood Count 5.03 x10^6/uL (4.30-5.70) Hemoglobin 15.3 g/dL (13.0-17.5) Hematocrit 45.4 % (39.0-53.0) Mean Corpuscular Volume 90 fL (79-100) Mean Corpuscular Hemoglobin 31 pg (25-35) Mean Corpuscular Hemoglobin Concent 34 g/dL (31-37) Red Cell Distribution Width 13.1 % (11.5-14.5) Platelet Count 155 x10^3/uL (140-400) Neutrophils (%) (Auto) 56 % (31-73) Lymphocytes (%) (Auto) 29 % (24-48) Monocytes (%) (Auto) 7 % (0-9) Eosinophils (%) (Auto) 8 % (0-3) Basophils (%) (Auto) 1 % (0-3) Neutrophils # (Auto) 3.0 x10^3uL (1.8-7.7) Lymphocytes # (Auto) 1.5 x10^3/uL (1.0-4.8) Monocytes # (Auto) 0.4 x10^3/uL (0.0-1.1) Eosinophils # (Auto) 0.4 x10^3/uL (0.0-0.7) Basophils # (Auto) 0.0 x10^3/uL (0.0-0.2) Prothrombin Time 11.9 SEC (11.7-14.0) Prothromb Time International Ratio 0.9 (0.8-1.1) Sodium Level 142 mmol/L (136-145) Potassium Level 3.5 mmol/L (3.5-5.1) Chloride Level 102 mmol/L (98-107) Carbon Dioxide Level 31 mmol/L (21-32) Anion Gap 9 (6-14) Blood Urea Nitrogen 13 mg/dL (8-26) Creatinine 1.1 mg/dL (0.7-1.3) Estimated GFR (Cockcroft-Gault) 66.4 BUN/Creatinine Ratio 12 (6-20) Glucose Level 129 mg/dL (70-99) Calcium Level 9.0 mg/dL (8.5-10.1) Total Bilirubin 0.3 mg/dL (0.2-1.0) Aspartate Amino Transf (AST/SGOT) 34 U/L (15-37) Alanine Aminotransferase (ALT/SGPT) 29 U/L (16-63) Alkaline Phosphatase 75 U/L (46-116) Troponin I Quantitative < 0.017 ng/mL (0.000-0.055) Total Protein 6.8 g/dL (6.4-8.2) Albumin 3.9 g/dL (3.4-5.0) Albumin/Globulin Ratio 1.3 (1.0-1.7) Triglycerides Level 59 mg/dL (0-150) Cholesterol Level 153 mg/dL (0-200) LDL Cholesterol, Calculated 88 mg/dL (0-100) VLDL Cholesterol, Calculated 12 mg/dL (0-40) Non-HDL Cholesterol Calculated 100 mg/dL (0-129) HDL Cholesterol 53 mg/dL (40-60) Cholesterol/HDL Ratio 2.9 Thyroid Stimulating Hormone (TSH) 0.997 uIU/mL (0.358-3.74) Laboratory Tests Test 01/03/19 19:35 01/04/19 08:55 White Blood Count 5.4 x10^3/uL (4.0-11.0) Red Blood Count 5.03 x10^6/uL (4.30-5.70) Hemoglobin 15.3 g/dL (13.0-17.5) Hematocrit 45.4 % (39.0-53.0) Mean Corpuscular Volume 90 fL (79-100) Mean Corpuscular Hemoglobin 31 pg (25-35) Mean Corpuscular Hemoglobin Concent 34 g/dL (31-37) Red Cell Distribution Width 13.1 % (11.5-14.5) Platelet Count 155 x10^3/uL (140-400) Neutrophils (%) (Auto) 56 % (31-73) Lymphocytes (%) (Auto) 29 % (24-48) Monocytes (%) (Auto) 7 % (0-9) Eosinophils (%) (Auto) 8 % (0-3) Basophils (%) (Auto) 1 % (0-3) Neutrophils # (Auto) 3.0 x10^3uL (1.8-7.7) Lymphocytes # (Auto) 1.5 x10^3/uL (1.0-4.8) Monocytes # (Auto) 0.4 x10^3/uL (0.0-1.1) Eosinophils # (Auto) 0.4 x10^3/uL (0.0-0.7) Basophils # (Auto) 0.0 x10^3/uL (0.0-0.2) Prothrombin Time 11.9 SEC (11.7-14.0) Prothromb Time International Ratio 0.9 (0.8-1.1) Sodium Level 142 mmol/L (136-145) Potassium Level 3.5 mmol/L (3.5-5.1) Chloride Level 102 mmol/L (98-107) Carbon Dioxide Level 31 mmol/L (21-32) Anion Gap 9 (6-14) Blood Urea Nitrogen 13 mg/dL (8-26) Creatinine 1.1 mg/dL (0.7-1.3) Estimated GFR (Cockcroft-Gault) 66.4 BUN/Creatinine Ratio 12 (6-20) Glucose Level 129 mg/dL (70-99) Calcium Level 9.0 mg/dL (8.5-10.1) Total Bilirubin 0.3 mg/dL (0.2-1.0) Aspartate Amino Transf (AST/SGOT) 34 U/L (15-37) Alanine Aminotransferase (ALT/SGPT) 29 U/L (16-63) Alkaline Phosphatase 75 U/L (46-116) Troponin I Quantitative < 0.017 ng/mL (0.000-0.055) Total Protein 6.8 g/dL (6.4-8.2) Albumin 3.9 g/dL (3.4-5.0) Albumin/Globulin Ratio 1.3 (1.0-1.7) Triglycerides Level 59 mg/dL (0-150) Cholesterol Level 153 mg/dL (0-200) LDL Cholesterol, Calculated 88 mg/dL (0-100) VLDL Cholesterol, Calculated 12 mg/dL (0-40) Non-HDL Cholesterol Calculated 100 mg/dL (0-129) HDL Cholesterol 53 mg/dL (40-60) Cholesterol/HDL Ratio 2.9 Thyroid Stimulating Hormone (TSH) 0.997 uIU/mL (0.358-3.74) Allergies Allergies Coded Allergies Type Severity Reaction Last Updated Verified No Known Drug Allergies 06/14/18 No Disposition/Orders: D/C to Home Patient Instructions D/C PLANNING 33 MIN HEENA VARMA MD January 04, 2019 17:09
[2019-01-04] MEDS ORDERED: ASPI325T11 PO (17:12)
[2019-01-04] MEDS ORDERED: METO-239 PO (17:12)
--- NOTE | 2019-01-04 17:12 | DISCH ---
DISCHARGE INSTRUCTIONS Condition on Discharge Condition on Discharge: Stable Activity After Discharge Activity Instructions for Disc: Activity as tolerated Lifting Instructions after Dis: No heavy lifting, No pulling or pushing Exercise Instruction after Dis: Walk 10 min, 3 x per day Driving Instructions after Dis: Do not drive today Diet after Discharge Diet after Discharge: Cardiac Checks after Discharge Checks after discharge: Check blood press - daily Contacting the DR. after DC Call your doctor for: If your condition worsens HEENA VARMA MD January 04, 2019 17:12
--- NOTE | 2019-01-04 18:00 | NUR ---
Discharge Note: BEV GALLO [address] Discharge instructions and discharge home medications reviewed with Patient and a copy given. All questions have been answered and understanding verbalized. The following instructions and handouts were given: Afib info, metoprolol info, asa info, discharge instructions. Discontinued lines and drains: Peripheral IV intact. Patient discharged to Home or Self Care with Self via Ambulated at 1800.
[2019-01-05] MEDS ORDERED: ASPIRIN ENTERIC COATED 325 MG TABLET.DR. PO SCH (08:00)
== END 2019-01-04 18:00 | disposition home or self-care (01) | DRG 310 ==
LOC: ER 19:24 → 2 SOUTH 20:55
PROVIDERS: ADMIT Internal Medicine; ATTEND Internal Medicine
DX: I48.1 Persistent atrial fibrillation (principal); I27.20 Pulmonary hypertension, unspecified; I34.1 Nonrheumatic mitral (valve) prolapse; M19.90 Unspecified osteoarthritis, unspecified site; Z82.49 Family history of ischemic heart disease and other diseases of the circulatory system; Z85.46 Personal history of malignant neoplasm of prostate; Z87.11 Personal history of peptic ulcer disease
CPT/HCPCS: 36415; 71045; 80053; 80061; 84443; 84484; 85025; 85610; 93005; 93306; 96361; 96372; 96374; 96376; J1650; J3490; J7030; 99285-25

== ENCOUNTER → 2019-08-05 | Outpatient (CLI) | payer OTHER ==
[~2019-08-05] MED LIST: ASPI325T11 PO; METO-239 PO; REGADENOSON 0.4 MG/5 ML DISP.SYRIN. IV ONE
--- NOTE | 2019-08-05 11:58 | RAD ---
MR#: [id number] Date of Study: 08/05/2019 Ordering Physician: ALINA SARAVIA Referring Physician: NELL STERLING Tech: HERMILO Aleman APPROVED REPORT Test Type: Pharmacological Stress Nurse/Tech: Sameera Loomis RN Test Indications: Afib Cardiac History: Afib Medications: See Electronic Medical Record Medical History: See Electronic Medical Record Resting ECG: SB Resting Heart Rate: 48 bpm Resting Blood Pressure: 122/58mmHg Pretest Chest Pain: No chest pain Nurse/Tech Notes S1S2, Lungs CTA Consent: The procedure was explained to the patient in lay terms. Informed consent was witnessed. Manjinder eout was entered into [employer]. History and Stress Test performed by ANDREA Valdivia, MOMO (R) (N) Pharm. Details Pharmacologic stress testing was performed using 0.4mg per 5ml of regadenoson given intravenously ove r 7-10 seconds. Stress Symptoms No chest pain or symptoms. POST EXERCISE Reason for Termination: Infusion complete Max HR: 68 bpm Max Blood Pressure: 113/67mmHg Blood Pressure response to exercise: Normal blood pressure response during stress. Heart Rate response to exercise: WNL Chest Pain: No. Arrhythmia: No. ST Change: No. INTERPRETATION Stress EKG Conclusion: Baseline EKG showed sinus rhythm. No ischemic changes at peak stress. No arr hythmias. Imaging Protocol IMAGE PROTOCOL: Rest Tc-99m/stress Tc-99m 1 day Rest: Stress: Viability: Radiopharm.Tc99m WgiovppowPy39c Sestamibi Dose8.5mCi 29mCi Duration 15min. 13min. Img Date 08/05/2019 08/05/2019 Inj-Img Wkih76tqw. 60min. Rest Admin Site:IV - Right AntecubitalAdministrator:RT Carol Ann (R)(N) Stress Admin Site: IV - Right AntecubitalAdministrator: ANDREA Valdivia, ARRT (R)(N) STRESS DATA End Diast. Vol.111.0mlLVEDV index BSA55.0ml End Syst. Vol.36.0mlLVESV index BSA18.0ml Myocardial Kerj209.0gEject. Seghnhbf04.0% Stress Scores Regional WT0.00Summed WT1.00 Regional WM0.00Summed WM1.00 Study quality was good. Left Ventricular size was Normal at Rest and Stress. Lung uptake was . Left Ventricular ejection fraction is 68%. The rest and stress images show normal perfusion, normal contraction and thickening. LV Perf. Quant 17 Seg. SSS2.00 17 Seg. SRS3.00 17 Seg. SDS0.00 Stress Defect Extent (% LAD)0.00Rest Defect Extent (% LAD)0.60Rev. Defect Extent (% LAD)0.00 Stress Defect Extent (% LCX) 0.00Rest Defect Extent (% LCX)0.00Rev. Defect Extent (% LCX)0.00 Stress Defect Extent (% RCA)0.00Rest Defect Extent (% RCA)13.30Rev. Defect Extent (% RCA)0.00 Stress Defect Extent (% GENESIS)2.40Rest Defect Extent (% GENESIS)6.70Rev. Defect Extent (% GENESIS)0.00 Conclusion 1. Regadenoson cardioisotope stress test did not show any evidence of ischemia or infarct. 2. Normal left ventricular systolic function with ejection fraction calculated at 68%. 3. Low risk for cardiac events. Signed by : Alina Saravia, Electronically Approved : 08/05/2019 11:57:58
== END | disposition home or self-care (01) ==
LOC: NM 08:16
PROVIDERS: ATTEND Internal Medicine Cardiovascular Disease
DX: I48.0 Paroxysmal atrial fibrillation (principal)
CPT/HCPCS: 78452; 93017; A9500; J2785

== ENCOUNTER → 2020-08-29 | Outpatient (CLI) | payer MEDICARE ==
[~2020-08-29] MED LIST changes: -REGADENOSON 0.4 MG/5 ML DISP.SYRIN. IV ONE
--- NOTE | 2020-08-29 11:37 | CARD ---
MR#: [id number] Date of Study: 08/29/2020 Ordering Physician: ALINA SARAVIA, Referring Physician: ALINA SARAVIA, Tech: Fadia Arias APPROVED REPORT EXAM: Two-dimensional and M-mode echocardiogram with Doppler and color Doppler. Other Information Quality : AverageHR: 56bpm INDICATION Atrial Fibrillation 2D DIMENSIONS RVDd3.9 (2.9-3.5cm)Left Atrium(2D)4.2 (1.6-4.0cm) IVSd1.0 (0.7-1.1cm)Aortic Root(2D)3.6 (2.0-3.7cm) LVDd5.3 (3.9-5.9cm)LVOT Diameter2.2 (1.8-2.4cm) PWd1.0 (0.7-1.1cm)LVDs3.7 (2.5-4.0cm) FS (%) 29.8 %SV76.2 ml LVEF(%)56.5 (>50%) Aortic Valve AoV Peak Benoit.105.8cm/sAoV VTI23.5cm AO Peak GR.4.5mmHgLVOT Peak Benoit.83.1cm/s LVOT VTI 18.67cmAO Mean GR.3mmHg QASIM (VMAX)2.13nz2EGM (VTI)3.00cm2 Mitral Valve MV E Vxjhzsew56.7cm/sMV E Peak Gr.141mmHg MV DECEL WOBO136kvBF A Jdyyhpdh96.2cm/s MV ERH02voU/A Ratio1.4 MVA (PHT)3.63cm2 TDI E/Lateral E'6.5E/Medial E'10.4 Pulmonary Valve PV Peak Qnobivci34.0cm/sPV Peak Grad.3mmHg Tricuspid Valve TR P. Qzmfojeg180eh/sRAP JIDZRHJI6jqAx TR Peak Gr.07bwGqXZRA26viLy Pulmonary Vein S1 Yfalgisu73.2cm/sD2 Hhupgczi85.5cm/s PVa kmyckfyq901itdy LEFT VENTRICLE The left ventricle is normal size. There is normal left ventricular wall thickness. The left ventricu lar systolic function is normal and the ejection fraction is within normal range. The Ejection Fracti on is 50-55%. There is normal LV segmental wall motion. Transmitral Doppler flow pattern is Grade II- pseudonormal filling dynamics. RIGHT VENTRICLE The right ventricle is mildly dilated. There is normal right ventricular wall thickness. The right ve ntricular systolic function is normal. ATRIA The left atrium is moderately dilated. The right atrium is moderately dilated. The interatrial septum is intact with no evidence for an atrial septal defect or patent foramen ovale as noted on 2-D or Do ppler imaging. AORTIC VALVE The aortic valve is normal in structure and function. Doppler and Color Flow revealed no significant aortic regurgitation. There is no significant aortic valvular stenosis. Calculated aortic valve area is 3.34 cm2 with maximum pressure gradient of 5 mmHg and mean pressure gradient of 3 mmHg. MITRAL VALVE The mitral valve is normal in structure and function. A mild mitral valve prolapse is present. There is no mitral valve stenosis. Doppler and Color-flow revealed mild to moderate mitral regurgitation. TRICUSPID VALVE The tricuspid valve is normal in structure and function. Doppler and Color Flow revealed mild tricusp id regurgitation with an estimated PAP of 25 mmHg. There is no tricuspid valve stenosis. PULMONIC VALVE Doppler and Color Flow revealed trace pulmonic valvular regurgitation. There is no pulmonic valvular stenosis. GREAT VESSELS The aortic root is normal in size. The IVC is normal in size and collapses >50% with inspiration. PERICARDIAL EFFUSION There is no evidence of significant pericardial effusion. Critical Notification Critical Value: No <Conclusion> The left ventricular systolic function is normal and the ejection fraction is within normal range. Th e Ejection Fraction is 50-55%. There is normal LV segmental wall motion. Doppler and Color-flow revealed mild to moderate mitral regurgitation. Doppler and Color Flow revealed mild tricuspid regurgitation with an estimated PAP of 25 mmHg. Signed by : Dorian Bertrand, Electronically Approved : 08/29/2020 11:37:13
== END ==
LOC: ECHO 07:44
PROVIDERS: ATTEND Internal Medicine Cardiovascular Disease
DX: I08.1 Rheumatic disorders of both mitral and tricuspid valves (principal); I48.0 Paroxysmal atrial fibrillation
CPT/HCPCS: 93306

== ENCOUNTER → 2021-08-29 | Outpatient (CLI) | payer MEDICARE ==
--- NOTE | 2021-08-30 10:58 | CARD ---
MR#: [id number] Date of Study: 08/29/2021 Ordering Physician: ALINA SARAVIA, Referring Physician: ALINA SARAVIA Tech: Patience Strickland [facility] APPROVED REPORT EXAM: Two-dimensional and M-mode echocardiogram with Doppler and color Doppler. Other Information Quality : AverageHR: 56bpm Rhythm : NSR INDICATION Cardiac Disease: CAD RISK FACTORS Hypertension Hyperlipidemia 2D DIMENSIONS RVDd4.1 (2.9-3.5cm)Left Atrium(2D)4.3 (1.6-4.0cm) IVSd1.1 (0.7-1.1cm)Aortic Root(2D)3.7 (2.0-3.7cm) LVDd5.0 (3.9-5.9cm)LVOT Diameter2.6 (1.8-2.4cm) PWd1.0 (0.7-1.1cm)LVDs3.3 (2.5-4.0cm) FS (%) 32.7 %SV70.8 ml LVEF(%)60.8 (>50%) Aortic Valve AoV Peak Benoit.92.1cm/sAoV VTI20.1cm AO Peak GR.3.4mmHgLVOT Peak Benoit.85.9cm/s AO Mean GR.2mmHgAVA (VMAX)4.88cm2 Mitral Valve MV E Ftbttqjf54.6cm/sMV DECEL HZFI458xo MV A Syfrxshw99.4cm/sE/A Ratio0.9 Pulmonary Valve PV Peak Jyxdwrja105.9cm/s Tricuspid Valve TR P. Yumxmzdv758td/sTR Peak Gr.24mmHg LEFT VENTRICLE The left ventricle is normal size. There is normal left ventricular wall thickness. The left ventricu lar systolic function is normal. The ejection fraction is 55%. There is normal LV segmental wall zhen on. Transmitral Doppler flow pattern is Grade I-abnormal relaxation pattern. RIGHT VENTRICLE The right ventricle is mildly dilated. There is normal right ventricular wall thickness. The right ve ntricular systolic function is normal. ATRIA The left atrium size is normal. The right atrium size is normal. The interatrial septum is intact wit h no evidence for an atrial septal defect or patent foramen ovale as noted on 2-D or Doppler imaging. AORTIC VALVE The aortic valve is normal in structure and function. Doppler and Color Flow revealed no significant aortic regurgitation. There is no significant aortic valvular stenosis. MITRAL VALVE The mitral valve is mildly thickened but opens well. There is no evidence of mitral valve prolapse. T here is no mitral valve stenosis. Doppler and Color-flow revealed mild mitral regurgitation. TRICUSPID VALVE The tricuspid valve is normal in structure and function. Doppler and Color Flow revealed mild tricusp id regurgitation. Estimated PAP 25-30 mmHg. There is no tricuspid valve stenosis. PULMONIC VALVE The pulmonary valve is normal in structure and function. Doppler and Color Flow revealed moderate to severe pulmonic valvular regurgitation. GREAT VESSELS The aortic root is mildly enlarged. The ascending aorta is Mildly dilated. The IVC is normal in size and collapses >50% with inspiration. PERICARDIAL EFFUSION There is no evidence of significant pericardial effusion. Critical Notification Critical Value: No <Conclusion> The left ventricular systolic function is normal. The ejection fraction is 55%. There is normal LV segmental wall motion. Transmitral Doppler flow pattern is Grade I-abnormal relaxation pattern. Mild mitral regurgitation. Mild tricuspid regurgitation. Estimated PAP 25-30 mmHg. There is no evidence of significant pericardial effusion. Signed by : Alina Saravia, Electronically Approved : 08/30/2021 10:57:41
== END ==
LOC: ECHO 07:44
PROVIDERS: ATTEND Internal Medicine Cardiovascular Disease
DX: I08.8 Other rheumatic multiple valve diseases (principal); I48.0 Paroxysmal atrial fibrillation
CPT/HCPCS: 93306